=== PATIENT | female | born 2000 | race Two or more races ===

== ENCOUNTER 2022-07-07 12:21 | Emergency (ER) | payer MEDICAID, OTHER ==
[~2022-07-07] VITALS: Ht 162.6 cm; Wt 59.5 kg
[2022-07-07 12:42] VITALS: BP 131/73
[2022-07-07] MEDS ORDERED: ACET-1158 PO (18:53)
[2022-07-07] MEDS ORDERED: CLIN300C8 PO (18:53)
== END 2022-07-07 19:07 | disposition home or self-care (01) ==
LOC: ER 12:21
DX: S20.151A Superficial foreign body of breast, right breast, initial encounter (principal); Z79.2 Long term (current) use of antibiotics; Z79.899 Other long term (current) drug therapy; X58.XXXA Exposure to other specified factors, initial encounter; Y93.89 Activity, other specified; Y92.89 Other specified places as the place of occurrence of the external cause; Y99.8 Other external cause status